=== PATIENT | female | born 1965 | race Caucasian/White ===

== ENCOUNTER 2023-08-21 14:42 | Emergency (ER) | payer MEDICAID ==
[~2023-08-21] VITALS: Ht 160 cm; Wt 66.0 kg
[2023-08-21 14:52] VITALS: TEMP 98.8; O2SAT 99
[2023-08-21] MEDS: LIDOCAINE 5% PATCH TOP SCH (15:45)
[2023-08-21] MEDS: KETOROLAC 15MG/ML VIAL IM ONE (15:45)
[2023-08-21] MEDS ORDERED: LIDO700A15 TP (18:02)
[2023-08-21] MEDS ORDERED: CYCL5TAB MT (18:02)
[2023-08-21] MEDS ORDERED: NAPR-1176 MT (18:02)
[2023-08-21 18:30] VITALS: BP 139/85; PULSE 96; RESP 18
[2023-08-21] MEDS: KETOROLAC 15MG/ML VIAL IM SCH (18:30)
== END 2023-08-21 19:30 | disposition home or self-care (01) ==
LOC: ER 14:42
DX: M54.6 Pain in thoracic spine (principal)
CPT/HCPCS: 99283; 96372; J1885